=== PATIENT | male | born 1985 ===

== ENCOUNTER 2020-01-16 08:59 | Outpatient (CLI) | payer SELFPAY ==
[2020-01-17 17:08] LABS: COVID-19 RT-PCR Result NEGATIVE (Negative)
== END 2020-01-16 09:19 ==
PROVIDERS: PCP Internal Medicine; Visit Provider Student in an Organized Health Care Education/Training Program
DX: R50.9 Fever, unspecified (principal); Z03.818 Encounter for observation for suspected exposure to other biological agents ruled out
CPT/HCPCS: U0003

== ENCOUNTER 2020-01-23 08:46 | Outpatient (CLI) | payer SELFPAY ==
[2020-01-24 01:51] LABS: COVID-19 RT-PCR UVMMC Result Negative (Negative)
== END 2020-01-23 09:06 ==
PROVIDERS: PCP Internal Medicine; Visit Provider Student in an Organized Health Care Education/Training Program
DX: R50.9 Fever, unspecified (principal); Z03.818 Encounter for observation for suspected exposure to other biological agents ruled out
CPT/HCPCS: U0003